=== PATIENT | female | born 1960 | race African-American/Black ===

== ENCOUNTER 2018-01-11 11:02 | Emergency (ER) | payer BC, OTHER ==
[2018-01-11] MEDS ORDERED: ASPIRIN 81 MG TABLET, CHEWABLE PO ONE (11:16)
--- NOTE | 2018-01-11 11:19 | ER Document Report ---
ED Medical Screen (RME) - General Chief Complaint: Low Blood Sugar Stated Complaint: WEAKNESS,SLURRED SPEECH Time Seen by Provider: 01/11/18 11:15 Mode of Arrival: Ambulatory Information source: Patient Notes: 57-year-old female presents emergency department complaints of slurred speech, right upper extremity, right lower extremity weakness. Patient states that she woke up with the symptoms. Patient has a history of diabetes and CVA. She states that she has been checking her blood sugar and it has been running on the lower side. In the emergency department her blood sugar 77. Patient states that she does have a history of CVA with similar symptoms in the past. She states that her hypoglycemic episodes can also mimic her stroke symptoms. Patient states that her symptoms are not resolving and she is concerned she is having another stroke. I have greeted and performed a rapid initial assessment of this patient. A comprehensive ED assessment and evaluation of the patient, analysis of test results and completion of the medical decision making process will be conducted by additional ED providers. PHYSICAL EXAMINATION: GENERAL: Well-appearing, well-nourished and in no acute distress. HEAD: Atraumatic, normocephalic. EYES: Pupils equal round extraocular movements intact, conjunctiva are normal. ENT: Nares patent NECK: Normal range of motion LUNGS: No respiratory distress Musculoskeletal: Normal range of motion NEUROLOGICAL: Normal speech, Normal finger to nose. No facial droop. No weakness appreciated. PSYCH: Normal mood, normal affect. SKIN: Warm, Dry, normal turgor, no rashes or lesions noted. TRAVEL OUTSIDE OF THE [place] IN LAST 30 DAYS: No - Related Data Allergies/Adverse Reactions: No Known Allergies Allergy (Verified 01/11/18 11:04) Doctor's Discharge - Discharge Referrals: LOCALMD,NO [Primary Care Provider] - Follow up as needed
[2018-01-11 11:44] LABS: ABSOLUTE LYMPHOCYTES (AUTO) 1.5 10^3/uL (0.5-4.7); ABSOLUTE MONOCYTES (AUTO) 0.3 10^3/uL (0.1-1.4); ABSOLUTE NEUT (AUTO) 3.6 10^3/uL (1.7-8.2); BASOPHILS % (AUTO) 0.5 % (0-2); EOSINOPHILS % (AUTO) 0.6 % (0-6); HEMATOCRIT 37.2 % (36.0-47.0); LYMPHOCYTES % (AUTO) 27.3 % (13-45); MEAN CORPUSCULAR HEMOGLOBIN 33.2 pg (27.0-33.4); MEAN CORPUSCULAR VOLUME 95 fl (80-97); MONOCYTES % (AUTO) 5.9 % (3-13); PLATELET COUNT 201 10^3/uL (150-450); RED BLOOD COUNT 3.91 10^6/uL (3.72-5.28); RED CELL DISTRIBUTION WIDTH 13.5 % (11.5-14.0); SEGMENTED NEUTROPHILS % (AUTO) 65.7 % (42-78); TOTAL CELLS COUNTED % (AUTO) 100 %; WHITE BLOOD COUNT 5.5 10^3/uL (4.0-10.5)
--- NOTE | 2018-01-11 11:50 | ER Document Report ---
ED Blood Sugar Problem - General Mode of Arrival: Ambulatory Information source: Patient, Relative TRAVEL OUTSIDE OF THE [place] IN LAST 30 DAYS: No <NIKHIL CASTLE - Last Filed: 01/11/18 12:55> <CHELSEY FORBES - Last Filed: 01/11/18 14:05> - General Chief Complaint: Low Blood Sugar Stated Complaint: WEAKNESS,SLURRED SPEECH Time Seen by Provider: 01/11/18 11:15 Notes: 57-year-old female that presents to the emergency department today with complaints of waking up with slurred speech, right upper and right lower extremity weakness. Patient states this is happened to her in the past when she had low blood sugars. Family states they gave the patient glucose just prior to coming here. Patient was found to have a blood sugar of 77 here on arrival. After getting this glucose, patient states her symptoms completely resolved shortly after arriving here. (NIKHIL CASTLE) - Related Data Allergies/Adverse Reactions: No Known Allergies Allergy (Verified 01/11/18 11:04) Past Medical History - General Information source: Patient - Social History Smoking Status: Never Smoker Frequency of alcohol use: None Drug Abuse: None Lives with: Spouse/Significant other Family History: Reviewed & Not Pertinent Patient has suicidal ideation: No Patient has homicidal ideation: No Endocrine Medical History: Reports: Hx Diabetes Mellitus Type 1 Past Surgical History: Reports: Hx Hysterectomy <NIKHIL CASTLE - Last Filed: 01/11/18 12:55> Review of Systems - Review of Systems Constitutional: See HPI, Other - Low BGL EENT: No symptoms reported Cardiovascular: No symptoms reported Respiratory: No symptoms reported Gastrointestinal: No symptoms reported Genitourinary: No symptoms reported Female Genitourinary: No symptoms reported Musculoskeletal: No symptoms reported Skin: No symptoms reported Hematologic/Lymphatic: No symptoms reported Neurological/Psychological: See HPI, Weakness - RUE/RLE, resolved, Speech impairment - resolved -: Yes All other systems reviewed and negative <NIKHIL CASTLE - Last Filed: 01/11/18 12:55> Physical Exam <NIKHIL CASTLE - Last Filed: 01/11/18 12:55> <CHELSEY FORBES - Last Filed: 01/11/18 14:05> - Vital signs Vitals: Temp Pulse Resp BP Pulse Ox 98.2 F 71 16 118/54 L 99 01/11/18 11:06 01/11/18 11:06 01/11/18 11:06 01/11/18 11:06 01/11/18 11:06 - Notes Notes: Physical Exam: General: Alert, appears well. HEENT: Normocephalic. Atraumatic. PERRL. Extraocular movements intact. Oropharynx clear. Neck: Supple. Non-tender. Respiratory: No respiratory distress. Clear and equal breath sounds bilaterally. Cardiovascular: Regular rate and rhythm. Abdominal: Normal Inspection. Non-tender. No distension. Normal Bowel Sounds. Back: Non-tender. No deformity or step off. Extremities: Moves all four extremities. Upper extremities: Normal inspection. Normal ROM. Lower extremities: Normal inspection. No edema. Normal ROM. Neurological: Normal cognition. AAOx4. Normal speech. Psychological: Normal affect. Normal Mood. Skin: Warm. Dry. Normal color. (NIKHIL CASTLE) Course - Laboratory Result Diagrams: 01/11/18 11:35 01/11/18 11:35 <NIKHIL CASTLE - Last Filed: 01/11/18 12:55> - Laboratory Result Diagrams: 01/11/18 11:35 01/11/18 11:35 <CHELSEY FORBES - Last Filed: 01/11/18 14:05> - Vital Signs Vital signs: Temp Pulse Resp BP Pulse Ox 98.2 F 71 16 118/54 L 100 01/11/18 11:06 01/11/18 11:06 01/11/18 11:06 01/11/18 11:06 01/11/18 11:42 - Laboratory Laboratory results interpreted by me: 01/11/18 13:00 Ur Leukocyte Esterase SMALL H Discharge <NIKHIL CASTLE - Last Filed: 01/11/18 12:55> <CHELSEY FORBES - Last Filed: 01/11/18 14:05> - Discharge Clinical Impression: Hypoglycemia Altered mental status Qualifiers: Altered mental status type: unspecified Qualified Code(s): R41.82 - Altered mental status, unspecified Condition: Stable Disposition: HOME, SELF-CARE Additional Instructions: Hypoglycemia You have suffered an episode of hypoglycemia (low blood sugar). Typical symptoms of hypoglycemia are shaking, sweating, headache, and confusion. When severe, unconsciousness or seizure may occur. Hypoglycemia occurs when a person taking insulin or diabetes pills has a change in the amount of blood sugar available -- due to exercise, decreased food intake, or alcohol. Should you feel symptoms of hypoglycemia again, immediately take some form of sugar such as sweetened juice. As the reaction subsides, eat a complex carbohydrate such as bread. If possible, check your blood sugar using a chemical strip. If episodes are occurring without obvious explanation, contact your physician for further evaluation. Be sure to check your sugars frequently. Reduce your insulin dosing if your blood sugars are running low. Be sure not to miss any meals. Follow-up with your doctor tomorrow to discuss changes to your insulin dosing. RETURN TO THE EMERGENCY ROOM IF ANY NEW OR WORSENING SYMPTOMS. Scribe Attestation: 01/11/18 12:19 I personally performed the services described in the documentation, reviewed and edited the documentation which was dictated to the scribe in my presence, and it accurately records my words and actions. (CHELSEY FORBES)
[2018-01-11 12:01] LABS: ALANINE AMINOTRANSFERASE 22 U/L (9-52); ALBUMIN 4.3 g/dL (3.5-5.0); ALKALINE PHOSPHATASE 78 U/L (38-126); ANION GAP 11 (5-19); ASPARTATE AMINO TRANSFERASE 31 U/L (14-36); BILIRUBIN,DIRECT 0.1 mg/dL (0.0-0.4); BILIRUBIN,TOTAL 1.2 mg/dL (0.2-1.3); BLOOD UREA NITROGEN 9 mg/dL (7-20); CALCIUM 9.9 mg/dL (8.4-10.2); CARBON DIOXIDE 29 mmol/L (22-30); CHLORIDE 104 mmol/L (98-107); GLUCOSE 108 mg/dL (75-110); POTASSIUM 4.6 mmol/L (3.6-5.0); SODIUM 143.9 mmol/L (137-145); TOTAL PROTEIN 7.3 g/dL (6.3-8.2)
--- NOTE | 2018-01-11 13:19 | EKG REPORT ---
SEVERITY:- OTHERWISE NORMAL ECG - SINUS RHYTHM LEFT AXIS DEVIATION LOW VOLTAGE IN FRONTAL LEADS : Confirmed by: William Krishnamurthy MD 11-Jan-2018 13:18:49
[2018-01-11 13:50] LABS: AMORPHOUS SEDIMENT,URINE TRACE /HPF; APPEARANCE,URINE SLIGHTLY-CLOUDY; BILIRUBIN,URINE NEGATIVE (NEGATIVE); COLOR,URINE STRAW; GLUCOSE, URINE NEGATIVE (NEGATIVE); KETONES,URINE NEGATIVE (NEGATIVE); LEUKOCYTE ESTERASE,URINE SMALL (NEGATIVE); NITRITE,URINE NEGATIVE (NEGATIVE); PROTEIN,URINE NEGATIVE (NEGATIVE); URINE SPECIFIC GRAVITY 1.005; UROBILINOGEN,URINE NEGATIVE mg/dL (<2.0)
[2018-01-11 14:20] VITALS: BP 112/60
== END 2018-01-11 14:21 | disposition home or self-care (01) ==
LOC: ER 11:02
DX: E10.65 Type 1 diabetes mellitus with hyperglycemia (principal); R41.82 Altered mental status, unspecified; R47.81 Slurred speech; M62.81 Muscle weakness (generalized)
CPT/HCPCS: 36415; 80053; 81001; 82962; 84484; 85025; 93005; 93010; 99284

== ENCOUNTER 2018-12-08 11:50 | Day surgery (SDC) | payer OTHER ==
[~2018-12-08 11:50] MED LIST: FENTANYL CITRATE INJ/PF 100 MCG/2 ML AMPUL ONE; KETOROLAC TROMETHAMINE 0.45% 4 DROP/0.4 ML DROPERETTE OD PRN; MIDAZOLAM 2 MG/2 ML INJ ONE; ONDANSETRON HCL INJ/PF 4 MG/2 ML SDV ONE
[2018-12-08] MEDS: CYCLOPENTOLATE 0.2%/PHENYLEPHRINE 1% OPH SOLN 2 ML OD PRN ×3 (12:40→12:57)
[2018-12-08] MEDS: BESIFLOXACIN HCL 0.6% OPH SUSP 5 ML BOTTLE OD PRN ×4 (12:40→13:17)
[2018-12-08] MEDS: TROPICAMIDE 1% OPH SOLN 15 ML OD PRN ×3 (12:40→12:57)
[2018-12-08] MEDS: TETRACAINE HCL 0.5% OPH SOLN 4 ML OD PRN ×3 (12:40→12:58)
[2018-12-08] MEDS ORDERED: TRYPAN BLUE 0.06 % OPH SOLN 0.5 ML DISP.SYRIN ONE (13:07)
[2018-12-08] MEDS: CHONDR SU A NA/HYALUR INTRAOC KIT (SURGICARE) ONE ×2 (13:09)
[2018-12-08] MEDS: EPINEPHRINE INJ/PF 1 MG/1 ML AMPULE ONE ×2 (13:09)
[2018-12-08] MEDS: LIDOCAINE 1% INJ-PF (10 MG/ML) 30 ML SDV ONE ×2 (13:09)
[2018-12-08] MEDS: DORZOLAMIDE HCL 2%/TIMOLOL MALEAT 0.5% OPH SOLN 10 ML OD PRN ×2 (13:17)
[2018-12-08] MEDS: TOBRAMYCIN SULFATE/DEXAMETH OPH OINTMENT 3.5 GM ONE ×2 (13:17)
== END 2018-12-08 14:15 | disposition home or self-care (01) ==
LOC: SC 11:50
PROVIDERS: ATTEND Ophthalmology
DX: H25.11 Age-related nuclear cataract, right eye (principal); E11.9 Type 2 diabetes mellitus without complications; E78.00 Pure hypercholesterolemia, unspecified; Z79.4 Long term (current) use of insulin; J45.909 Unspecified asthma, uncomplicated
CPT/HCPCS: 66984; 82962; 00142; V2632; J2250; J3490 ×5; J0171; J3010; J2405; 142

== ENCOUNTER → 2018-12-21 | Outpatient (CLI) | payer OTHER ==
[2018-12-21 10:55] LABS: HEMOGLOBIN 12.4 g/dL (12.0-15.5); MEAN CORPUSCULAR HEMOGLOBIN 32.7 pg (27.0-33.4); MEAN CORPUSCULAR HGB CONC 34.6 g/dL (32.0-36.0); MEAN CORPUSCULAR VOLUME 95 fl (80-97); PLATELET COUNT 178 10^3/uL (150-450); RED CELL DISTRIBUTION WIDTH 13.2 % (11.5-14.0); WHITE BLOOD COUNT 3.9 10^3/uL (4.0-10.5)
[2018-12-21 11:38] LABS: ALBUMIN 4.1 g/dL (3.5-5.0); ALKALINE PHOSPHATASE 92 U/L (38-126); ANION GAP 9 (5-19); ASPARTATE AMINO TRANSFERASE 34 U/L (14-36); BILIRUBIN,DIRECT 0.2 mg/dL (0.0-0.4); BILIRUBIN,TOTAL 1.2 mg/dL (0.2-1.3); BLOOD UREA NITROGEN 10 mg/dL (7-20); CALCIUM 9.5 mg/dL (8.4-10.2); CARBON DIOXIDE 28 mmol/L (22-30); CHLORIDE 104 mmol/L (98-107); CHOLESTEROL 158.35 mg/dL (0-200); GLUCOSE 93 mg/dL (75-110); TOTAL PROTEIN 7.2 g/dL (6.3-8.2); TRIGLYCERIDES 49 mg/dL (<150)
[2018-12-21 11:50] LABS: DIRECT LDL 97 mg/dL (<100)
== END ==
LOC: OD 09:56
PROVIDERS: ATTEND Physician Assistant
DX: I49.1 Atrial premature depolarization (principal); E78.5 Hyperlipidemia, unspecified; E10.9 Type 1 diabetes mellitus without complications; Z79.899 Other long term (current) drug therapy
CPT/HCPCS: 36415; 80048; 80061; 80076; 83735; 84443; 85027

== ENCOUNTER 2018-12-22 07:26 | Day surgery (SDC) | payer OTHER ==
[~2018-12-22 07:26] MED LIST changes: -KETOROLAC TROMETHAMINE 0.45% 4 DROP/0.4 ML DROPERETTE OD PRN; +KETOROLAC TROMETHAMINE 0.45% 4 DROP/0.4 ML DROPERETTE OS PRN
[2018-12-22] MEDS: TETRACAINE HCL 0.5% OPH SOLN 4 ML OS PRN ×4 (07:32→08:32)
[2018-12-22] MEDS: BESIFLOXACIN HCL 0.6% OPH SUSP 5 ML BOTTLE OS PRN ×4 (08:00→08:55)
[2018-12-22] MEDS: CYCLOPENTOLATE 0.2%/PHENYLEPHRINE 1% OPH SOLN 2 ML OS PRN ×3 (08:00→08:22)
[2018-12-22] MEDS: TROPICAMIDE 1% OPH SOLN 15 ML OS PRN ×3 (08:00→08:22)
[2018-12-22] MEDS: CHONDR SU A NA/HYALUR INTRAOC KIT (SURGICARE) ONE ×2 (08:45)
[2018-12-22] MEDS: EPINEPHRINE INJ/PF 1 MG/1 ML AMPULE ONE ×2 (08:45)
[2018-12-22] MEDS: LIDOCAINE 1% INJ-PF (10 MG/ML) 30 ML SDV ONE ×2 (08:45)
[2018-12-22] MEDS ORDERED: TRYPAN BLUE 0.06 % OPH SOLN 0.5 ML DISP.SYRIN ONE (08:47)
[2018-12-22] MEDS: DORZOLAMIDE HCL 2%/TIMOLOL MALEAT 0.5% OPH SOLN 10 ML OS PRN ×2 (08:55)
[2018-12-22] MEDS: TOBRAMYCIN SULFATE/DEXAMETH OPH OINTMENT 3.5 GM ONE ×2 (08:55)
== END 2018-12-22 09:33 | disposition home or self-care (01) ==
LOC: SC 07:26
PROVIDERS: ATTEND Ophthalmology
DX: H25.12 Age-related nuclear cataract, left eye (principal); E11.9 Type 2 diabetes mellitus without complications; Z79.4 Long term (current) use of insulin; Z98.41 Cataract extraction status, right eye
CPT/HCPCS: 66982; 82962; 00142; V2632; J2250; J3490 ×5; J0171; J3010; J2405; 142